=== PATIENT | male | born 1970 | race Caucasian/White ===

== ENCOUNTER 2017-03-01 12:16 | Emergency (ER) | payer OTHER ==
[2017-03-01 12:24] VITALS: TEMP 98.6
--- NOTE | 2017-03-01 13:50 | CPEKG ---
Heart Rate: 68 RR Interval: 882 P-R Interval: 156 QRSD Interval: 80 QT Interval: 384 QTC Interval: 409 P [place]: 20 QRS [place]: -12 T Wave [place]: 1 EKG Severity - NORMAL ECG - EKG Impression: SINUS RHYTHM Electronically Signed By: Tanika Gentile 01-Mar-2017 20:05:46
--- NOTE | 2017-03-01 14:04 | EDPHY ---
H & P Time Seen by Provider: 03/01/17 13:20 HPI/ROS: CHIEF COMPLAINT: left pinky numbness HISTORY OF PRESENT ILLNESS: Patient is a 47-year-old male who presents to the emergency department with left pinky numbness. The patient states his symptoms on night. He states it is focused over the left pinky in comes up the medial aspect of his forearm. He has no headache, neck pain, or recent trauma. 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 Patient states that he had intermittent right chest pain that was a "twinge." He has no chest pain currently. He denies shortness of breath, nausea or vomiting. REVIEW OF SYSTEMS: My complete review of systems is negative except as mentioned in the HPI. Past Medical/Surgical History: Denies Past surgical history: Denies Social history: The patient drinks alcohol occasionally. No drugs. Patient does not smoke. Smoking Status: Never smoked Physical Exam: Vitals noted GENERAL: Well-appearing, in no acute distress, alert. HEENT: Eyes normal to inspection, normal pharynx, no signs of dehydration. NECK: No thyromegaly, no lymphadenopathy, supple. RESPIRATORY: Clear to auscultation bilaterally, no rales, rhonchi or wheezing. CVS: Regular rate and rhythm, no rubs, murmurs, or gallops. ABDOMEN: Soft, nontender, nondistended, no organomegaly. BACK: Normal to inspection, no CVA tenderness. SKIN: Normal color, no rash, warm, dry. No pallor. EXTREMITIES: No pedal edema, no calf tenderness, no Homans sign or cords, no joint swelling. Patient's left upper extremity appears normal. There is no swelling or redness. There is no visible signs of abnormality in the hand, wrist, forearm or elbow. Neurovascularly intact distally. All nerve distributions are normal. NEURO/PSYCH: Higher functions: Alert and Oriented x3. Normal speech and cognition. Normal mood and affect. Cranial nerves: Normal as tested. Cerebellar: Normal as tested. Good finger to nose, good [id number], normal gait. Peripheral exam: [Normal motor exam. Normal sensation. Normal reflexes. Constitutional: Initial Vital Signs Temperature (C) 37 C 03/01/17 12:20 Heart Rate 86 03/01/17 12:20 Respiratory Rate 18 03/01/17 12:20 Blood Pressure 150/99 H 03/01/17 12:20 O2 Sat (%) 96 03/01/17 12:20 O2 Delivery Mode Room Air Allergies/Adverse Reactions: No Known Allergies Allergy (Verified 03/01/17 12:22) Home Medications: Medication Instructions Recorded NK [No Known Home Meds] 03/01/17 Medical Decision Making - Diagnostics EKG Interpretation: EKG shows normal sinus rhythm, normal rate, normal axis, normal intervals. There are no ST or T-wave abnormalities. EKG is normal as interpreted by me. ED Course/Re-evaluation: In the emergency department I discussed possible etiologies with the patient. I do not feel the patient needs CT imaging or MRI imaging of his head. I do not feel he needs imaging of his C-spine. I did consider brachial plexus injury but did not feel he needs acute imaging or intervention at this time. Patient had intermittent chest pain. EKG and laboratory studies were ordered. I reviewed the patient's laboratory studies. They are normal. Troponin was negative. I gave the patient warnings prior to leaving. He will return with worsening symptoms. Differential Diagnosis: Patient presents with focal left pinky tingling. He states his finger feels like it is asleep. He has no recent trauma. He could have nerve prior axis from sleep. I doubt ischemic or hemorrhagic CVA. I doubt dissection or aneurysm. I considered brachial plexus injury. I also considered disc herniation. The patient will follow up with Neurology. I doubt acute [place] or ACS. - Data Points Laboratory Results: Laboratory Results 03/01/17 14:00 03/01/17 14:00 03/01/17 03/01/17 14:00 14:00 WBC 7.66 10^3/uL 10^3/uL (3.80-9.50) RBC 5.66 10^6/uL 10^6/uL (4.40-6.38) Hgb 16.1 g/dL g/dL (13.7-17.5) Hct 47.5 % % (40.0-51.0) MCV 83.9 fL fL (81.5-99.8) MCH 28.4 pg pg (27.9-34.1) MCHC 33.9 g/dL g/dL (32.4-36.7) RDW 13.2 % % (11.5-15.2) Plt Count 329 10^3/uL 10^3/uL (150-400) MPV 9.8 fL fL (8.7-11.7) Neut % (Auto) 62.8 % % (39.3-74.2) Lymph % (Auto) 28.2 % % (15.0-45.0) [place] % (Auto) 6.4 % % (4.5-13.0) Eos % (Auto) 1.6 % % (0.6-7.6) Baso % (Auto) 0.7 % % (0.3-1.7) Nucleat RBC Rel Count 0.0 % % (0.0-0.2) Absolute Neuts (auto) 4.82 10^3/uL 10^3/uL (1.70-6.50) Absolute Lymphs (auto) 2.16 10^3/uL 10^3/uL (1.00-3.00) Absolute Monos (auto) 0.49 10^3/uL 10^3/uL (0.30-0.80) Absolute Eos (auto) 0.12 10^3/uL 10^3/uL (0.03-0.40) Absolute Basos (auto) 0.05 10^3/uL 10^3/uL (0.02-0.10) Absolute Nucleated RBC 0.00 10^3/uL 10^3/uL (0-0.01) Immature Gran % 0.3 % % (0.0-1.1) Immature Gran # 0.02 10^3/uL 10^3/uL (0.00-0.10) Sodium 140 mEq/L mEq/L (134-144) Potassium 4.2 mEq/L mEq/L (3.5-5.2) Chloride 104 mEq/L mEq/L (97-110) Carbon Dioxide 27 mEq/l mEq/l (22-31) Anion Gap 9 mEq/L mEq/L (8-16) BUN 14 mg/dL mg/dL (7-23) Creatinine 0.9 mg/dL mg/dL (0.7-1.3) Estimated GFR > 60 Glucose 101 mg/dL H mg/dL (70-100) Calcium 10.1 mg/dL mg/dL (8.5-10.4) Troponin I < 0.012 ng/mL ng/mL (0-0.034) Departure - Departure Disposition: Home, Routine, Self-Care Clinical Impression: Paresthesia Condition: Good Instructions: Paresthesia (ED) Additional Instructions: Return with increasing numbness, weakness, neck pain, headache or any other concerns. You been given follow-up with neurology. Call to make an appointment. Referrals: Eduardo Nayak MD [Medical Doctor] - 5-7 days, if not improved
[2017-03-01 14:07] LABS: % IMMATURE GRANULYOCYTES 0.3 % (0.0-1.1); ABSOLUTE IMMATURE GRANULOCYTES 0.02 10^3/uL (0.00-0.10); ADD DIFF? NO; ADD MORPH? NO; ADD SCAN? NO; ATYPICAL LYMPHOCYTE FLAG 10 (0-99); FRAGMENT RBC FLAG 0 (0-99); HEMATOCRIT 47.5 % (40.0-51.0); HEMOGLOBIN 16.1 g/dL (13.7-17.5); LEFT SHIFT FLG 0 (0-99); LIPEMIA HEMOLYSIS FLAG 90 (0-99); MEAN CELL HEMOGLOBIN 28.4 pg (27.9-34.1); MEAN CELL HEMOGLOBIN CONCENTR. 33.9 g/dL (32.4-36.7); MEAN CELL VOLUME 83.9 fL (81.5-99.8); MEAN PLATELET VOLUME 9.8 fL (8.7-11.7); PLATELET CLUMPS FLAG 0 (0-99); PLATELET COUNT 329 10^3/uL (150-400); RED BLOOD CELL COUNT 5.66 10^6/uL (4.40-6.38); RED CELL DISTRIBUTION WIDTH 13.2 % (11.5-15.2)
[2017-03-01 14:16] LABS: ANION GAP 9 mEq/L (8-16); CALCIUM 10.1 mg/dL (8.5-10.4); CARBON DIOXIDE 27 mEq/l (22-31); CHLORIDE 104 mEq/L (97-110); CREATININE 0.9 mg/dL (0.7-1.3); GLOMERULAR FILTRATION RATE > 60; GLUCOSE 101 mg/dL (70-100); POTASSIUM 4.2 mEq/L (3.5-5.2); SODIUM 140 mEq/L (134-144)
[2017-03-01 14:28] LABS: TROPONIN I < 0.012 ng/mL (0-0.034)
[2017-03-01 15:11] VITALS: BP 129/86; PULSE 59; RESP 16; O2SAT 99
== END 2017-03-01 15:06 | disposition home or self-care (01) ==
DX: R20.2 Paresthesia of skin (principal)